=== PATIENT | female | born 2000 | race Caucasian/White ===

== ENCOUNTER 2020-08-11 12:57 | Emergency (ER) | payer OTHER, SELFPAY ==
--- NOTE | ~2020-08-11 | US_ITS ---
EXAMINATION: US OB <=14 wk fetus w TV DATE: 08/11/2020 14:15 INDICATION: Vaginal bleeding during . TECHNIQUE: Real-time pelvic ultrasound utilizing both a transvaginal and transabdominal probe was pe rformed. The interpreting radiologist was not present for the study. COMPARISON: None. FINDINGS: The uterus measures 7.1 x 3.2 x 4.0 cm. The endometrial complex measures 8 mm in thickness which is within normal limits. No intrauterine gestational sac. Is a small amount focus of vascular flow withi n the endometrial complex on color Doppler. The right ovary measures 3.1 x 1.5 x 1.8 cm. The left ova ry measures 2.8 x 1.3 x 1.3 cm. Vascular flow identified within both ovaries on color Doppler. No oth er abnormal masses identified at the adnexal regions. There is no free fluid in the pelvis. IMPRESSION: 1. No intrauterine gestational sac. Differential would include early, failed or ectopic alt ariella there are no other findings to more specifically suggest the latter. Reviewed, dictated and finalized at location A. SUPPORT TECHNICIAN IMPRESSION: 1. No intrauterine gestational sac. Differential would include early, failed or ectopic although there are no other findings to more specifically beavers ggest the latter.
[2020-08-11 13:00] VITALS: BP 121/80; PULSE 102; RESP 16; TEMP 36.4; O2SAT 100
--- NOTE | 2020-08-11 13:19 | ED.PREGNANCY ---
HPI - General Chief complaint: Vaginal Bleeding Stated complaint: preg/vb Time Seen by Provider: 08/11/20 13:11 Source: patient Mode of arrival: ambulatory Limitations: no limitations History of Present Illness HPI Narrative: A 19-year-old female presents to the emergency department with complaints of vaginal bleeding early in . Patient states she thinks she is approximately 6 to 7 weeks along. She notes that starting last night she had a gush of blood with several small dime sized clots. She does endorse some cramping associated with this. Patient denies seeing any tissue. She does note that this is her first . She denies any trauma, injury or sexual activity preceding the bleeding. Related Data Home Medications Medication Instructions Recorded Confirmed No Home Medications 08/11/20 08/11/20 Allergies Allergy/AdvReac Type Severity Reaction Status Date / Time No Known Allergies Allergy Verified 08/11/20 13:03 Review of Systems Review of Systems: Narrative: CONSTITUTIONAL: Denies fever, chills, or sweats. EYES: Denies visual changes, redness, or discharge. ENT: Denies rhinorrhea, congestion, sore throat, or otalgia. CARDIOVASCULAR: Denies chest pain, palpitations, or edema. RESPIRATORY: Denies cough or dyspnea. GASTROINTESTINAL: Denies abdominal pain, nausea, vomiting, or diarrhea. GENITOURINARY: Denies dysuria or hematuria. Endorses vaginal bleeding. SKIN: Denies rash or itching. MUSCULOSKELETAL: Denies back pain, joint pain, or myalgia. NEUROLOGIC: Denies headache, numbness, dizziness, or weakness. PSYCHIATRIC: Denies anxiety or depression. [facility] Social History Social History Gender identity (if verbalized by the patient): Female Exam Narrative: Exam Narrative: GENERAL: Well-appearing, well-nourished, and in no acute distress. HEAD: Normocephalic, atraumatic. EYES: PERRLA and EOMI. ENT: Nares clear, no rhinorrhea or epistaxis. Mucous membranes moist. Oropharynx without tonsillar hypertrophy exudate or other lesions. Bilateral TMs pearly wilkinson nonbulging NECK: Supple. No adenopathy or masses. No carotid bruits or JVD CHEST: Clear to auscultation. No respiratory distress. No wheezes rales or rhonchi HEART: Regular rate and rhythm. No murmur heard. Normal peripheral pulses. ABDOMEN: Soft, nontender, nondistended, normal active bowel sounds. EXTREMITIES: Normal range of motion. No edema. SKIN: Warm, dry, no rash. NEURO: No focal deficits. Alert and oriented x3. PSYCH: Normal mood and affect. Course Reevaluation(s) Reevaluation #1: Updated patient to the findings of the work-up thus far. Given her bleeding, the ultrasound findings and the low hCG I did feel that she likely had a completed miscarriage. Patient was encouraged for pelvic rest and to follow-up with her dry wall installer as soon as possible. Time: 14:43 Vital Signs Vital signs: Vital Signs Temperature 36.4 C 08/11/20 13:00 Pulse Rate 102 H 08/11/20 13:00 Respiratory Rate 16 08/11/20 13:00 Blood Pressure 121/80 08/11/20 13:00 Pulse Oximetry 100 08/11/20 13:00 Temperature 36.4 C 08/11/20 13:00 Pulse Rate 102 H 08/11/20 13:00 Respiratory Rate 16 08/11/20 13:00 Blood Pressure 121/80 08/11/20 13:00 Pulse Oximetry 100 08/11/20 13:00 MDM - OB/Uterine Contractions MDM Narrative Medical decision making narrative: In brief this is a 19-year-old female who came into the emergency department with vaginal bleeding early in . Work-up ensued. Her hCG levels were very very low, ultrasound negative for any signs of . With heavy bleeding at the patient had yesterday she likely miscarried. Informed patient of pelvic rest and to follow-up with her dry wall installer. Medical Records Attestation: I reviewed the patient's medical records. Lab Data Attestation: I reviewed the patient's lab results. Result diagrams: 08/11/20 13
[2020-08-11 13:31] LABS: Basophils Percent Auto 0.4 % (0.2-1.2); Eosinophils Absolute Auto 0.2 K/mm3 (0-0.3); Eosinophils Percent Auto 2.2 % (0-4.4); Hematocrit 38.9 % (37.0-47.0); Hemoglobin 12.8 g/dL (12.0-15.0); Immature Granulocyte Absolute 0.02 K/mm3 (0.00-0.031); Immature Granulocyte Percent A 0.3 % (0-0.5); Lymphocytes Absolute Auto 2.48 K/mm3 (0.9-3.2); Mean Corpuscular HGB Conc 32.9 g/dl (32-36); Mean Corpuscular Hemoglobin 31.1 pg (26-34); Mean Corpuscular Volume 94.4 fl (80-100); Mean Platelet Volume 9.2 fl (7.4-10.4); Monocytes Absolute Auto 0.6 K/mm3 (0.1-0.6); Monocytes Percent Auto 7.7 % (2.6-8.5); Neutrophils Absolute Auto 4.5 K/mm3 (1.3-6.7); Neutrophils Percent Auto 57.4 % (45.5-73.1); Platelet Count Result 341 k/mm3 (150-375); Red Blood Count 4.12 M/mm3 (4.2-5.4); Red Cell Distribution Width 13.1 % (11.5-14.5); White Blood Count 7.8 K/mm3 (4.5-10.0)
[2020-08-11 13:44] LABS: Anion Gap 6 mmol/L (8-16); Blood Urea Nitrogen 9 mg/dL (7-17); Carbon Dioxide 26 mmol/L (22-30); Chloride 105 mmol/L (98-107); Estimated CRCL calculation 132 ml/min; Estimated Glomerular Filt Rate > 60; Glucose 98 mg/dL (65-105); Potassium 3.5 mmol/L (3.4-5.0); Sodium 137 mmol/L (137-145)
[2020-08-11 13:59] LABS: Beta HCG Quantitative 42.76 mIU/ML
[2020-08-11 14:53] VITALS: BP 136/84; PULSE 84; RESP 16; O2SAT 99
== END 2020-08-11 14:53 | disposition home or self-care (01) ==
PROVIDERS: Emergency Medicine; Emergency Provider Emergency Medicine
DX: O03.9 Complete or unspecified spontaneous abortion without complication (principal)
CPT/HCPCS: 36415; 76801; 76817; 80048; 84702; 85025; 85461; 99284

== ENCOUNTER 2020-09-13 18:44 | Emergency (ER) | payer OTHER, SELFPAY ==
--- NOTE | ~2020-09-13 | XR_ITS ---
EXAMINATION: XR foot RT min 3V EXAM DATE: 09/13/2020 19:45 INDICATION: Fell on ice, lateral right foot pain radiating to 4th digit. Initial encounter. TECHNIQUE: Right foot dorsoplantar, lateral and oblique projections obtained and reviewed. There is no prior study for comparison. FINDINGS: Right metatarsal bones unremarkable. There are no acute fractures or dislocations identifi ed. There is no subcutaneous gas. The soft tissue is unremarkable. There are no radiopaque foreig n bodies. IMPRESSION: No acute osseous findings. Reviewed, dictated and finalized at location A. VITY AIDE IMPRESSION: No acute osseous findings.
[2020-09-13 19:19] VITALS: BP 136/61; PULSE 91; RESP 16; TEMP 36.3; O2SAT 100
--- NOTE | 2020-09-13 20:53 | ED.LOWEXIN ---
HPI - Extremity Injury (Lower) General Chief Complaint: Extremity Injury, Lower Stated Complaint: fall, rt foot pain Time Seen by Provider: 09/13/20 19:58 Source: patient Mode of arrival: ambulatory Limitations: no limitations History of Present Illness HPI Narrative: This is a 19 year old female that presents to the ER for right foot pain after an injury last night. Reports she slipped on the ice. Reports pain on the lateral aspect of the foot. Worse with weightbearing and relieved with rest. Denies decreased range of motion or numbness. Related Data Home Medications Medication Instructions Recorded Confirmed naproxen sodium [Aleve] mg 09/13/20 Allergies Allergy/AdvReac Type Severity Reaction Status Date / Time No Known Allergies Allergy Verified 09/13/20 19:26 Review of Systems Review of Systems: Narrative: CONSTITUTIONAL: Denies fever MUSCULOSKELETAL: Reports joint pain, and myalgia. NEUROLOGIC: Denies numbness, or weakness. All systems reviewed & are unremarkable except as noted in HPI and below PMFSH Past Medical History Medical History (Updated 09/13/20 @ 20:59 by Judith Bajwa PA-C) No active medical problems Social History Social History (Updated 09/13/20 @ 20:56 by Judith Bajwa PA-C) Smoking status: Never smoker Gender identity (if verbalized by the patient): Female Exam Narrative: Exam Narrative: GENERAL: Well-appearing, well-nourished, and in no acute distress. HEAD: Normocephalic, atraumatic. EYES: EOMI. EXTREMITIES: Normal range of motion. No edema or obvious deformity. Normal DP pulses. Normal sensation SKIN: Warm, dry, no rash. NEURO: No focal deficits. Alert and oriented x3. PSYCH: Normal mood and affect Course Vital Signs Vital signs: Vital Signs Temperature 97.4 F L 09/13/20 19:19 Pulse Rate 91 09/13/20 19:19 Respiratory Rate 16 09/13/20 19:19 Blood Pressure 136/61 09/13/20 19:19 Pulse Oximetry 100 09/13/20 19:19 Temperature 97.4 F L 09/13/20 19:19 Pulse Rate 91 09/13/20 19:19 Respiratory Rate 16 09/13/20 19:19 Blood Pressure 136/61 09/13/20 19:19 Pulse Oximetry 100 09/13/20 19:19 MDM - Extremity Injury (Lower) MDM Narrative Medical decision making narrative: Patient presents the emergency department for right foot pain after an injury today. Right foot x-ray is without acute osseous abnormalities. Patient was instructed on care of foot sprain. She is to follow-up with primary care doctor. She was given warnings to return the ER Imaging Data Radiologist's impression: ITS Impressions Foot X-Ray 09/13/20 19:49 IMPRESSION: No acute osseous findings. Critical Care Time Critical Care Time Critical Care Time: No Discharge Plan Discharge Clinical Impression: Right foot sprain Qualifiers: Encounter type: initial encounter Qualified Code(s): S93.601A - Unspecified sprain of right foot, initial encounter Patient Disposition: Home, Self-Care Condition: Stable Instructions: Foot Sprain (ED) Additional Instructions: Return to the ER if you experience fever, redness and swelling of your leg, numbness, or any other symptoms that are concerning to you Wear SAJAN wrap and use crutches. No weight on the affected leg until able to bear weight without pain. Ice and elevate extremity. Pain medication as needed and directed. Follow up with primary care doctor for further care. Prescriptions: No Action naproxen sodium [Aleve] 220 mg Tablet RF: 0 Follow-up/Referrals: Trino Sanders MD [Physician] - 1 Week PHYSICIAN,RIVETER HELPER [Primary Care Provider] - Stand Alone Forms: Work/School Release IP
== END 2020-09-13 21:28 | disposition home or self-care (01) ==
PROVIDERS: Emergency Provider Emergency Medicine
DX: S93.601A Unspecified sprain of right foot, initial encounter (principal); W00.0XXA Fall on same level due to ice and snow, initial encounter
CPT/HCPCS: 73630; 99283

== ENCOUNTER 2020-12-11 11:17 | Emergency (ER) | payer OTHER, SELFPAY ==
--- NOTE | ~2020-12-11 | XR_ITS ---
EXAMINATION: XR toe 4th LT min 2V DATE: 12/11/2020 12:07 INDICATION: Left fourth toe injury. TECHNIQUE: 4 views of left fourth toe were obtained. COMPARISON: None. FINDINGS: Bone alignment is normal. No fracture. Joint spaces are well maintained. IMPRESSION: 1. No fracture. Reviewed, dictated and finalized at location A. IMPRESSION: 1. No fracture.
[2020-12-11 11:20] VITALS: BP 144/91; PULSE 95; RESP 18; TEMP 36.4; O2SAT 100
--- NOTE | 2020-12-11 12:33 | ED.GENADULT ---
HPI - General Adult General Chief complaint: Extremity Injury, Lower Stated complaint: L 4 th toe injury Time Seen by Provider: 12/11/20 11:35 Source: patient and RN notes reviewed Mode of arrival: ambulatory Limitations: no limitations History of Present Illness HPI narrative: Patient is a 20-year-old female who presents with left fourth toe pain after striking the toe a day ago while walking notes aching pain worse with activity and movement noted bruising in the toe denies other injuries or complaints presents in no distress Related Data Home Medications Medication Instructions Recorded Confirmed naproxen sodium [Aleve] mg 09/13/20 Allergies Allergy/AdvReac Type Severity Reaction Status Date / Time No Known Allergies Allergy Verified 12/11/20 11:33 Review of Systems Review of Systems: All systems reviewed & are unremarkable except as noted in HPI and below PMFSH Past Medical History Medical History No active medical problems Social History Social History (Updated 09/13/20 @ 20:56 by Judith Bajwa PA-C) Smoking status: Never smoker Gender identity (if verbalized by the patient): Female Exam Narrative: Exam Narrative: GENERAL: Well-appearing, well-nourished, and in no acute distress. HEAD: Normocephalic, atraumatic. EYES: PERRLA and EOMI. ENT: Nares clear, no rhinorrhea or epistaxis. Mucous membranes moist. EXTREMITIES: Normal range of motion. No edema. Fourth toe with bruising and tenderness left foot no other deformities SKIN: Warm, dry, no rash. NEURO: No focal deficits. Alert and oriented x3. Neurovascularly intact. Capillary refill less than 2 seconds PSYCH: Normal mood and affect. Course Course Emergency Course: Patient in the room in no distress aware of case findings treatment plan and diagnosis Vital Signs Vital signs: Vital Signs Temperature 97.5 F L 12/11/20 11:20 Pulse Rate 95 12/11/20 11:20 Respiratory Rate 18 12/11/20 11:20 Blood Pressure 144/91 H 12/11/20 11:20 Pulse Oximetry 100 12/11/20 11:20 Temperature 97.5 F L 12/11/20 11:20 Pulse Rate 95 12/11/20 11:20 Respiratory Rate 18 12/11/20 11:20 Blood Pressure 144/91 H 12/11/20 11:20 Pulse Oximetry 100 12/11/20 11:20 Medical Decision Making MDM Narrative Medical decision making narrative: Patients injury or pain is consistent with musculoskeletal etiology. No signs of neurological or vascular compromise on exam. Compartments and tisues are soft without signs of compartment syndrome. Pain is felt appropriate for further evaluation on an outpatient basis. Vital Signs Vital Signs: Vital Signs Temperature 97.5 F L 12/11/20 11:20 Pulse Rate 95 12/11/20 11:20 Respiratory Rate 18 12/11/20 11:20 Blood Pressure 144/91 H 12/11/20 11:20 Pulse Oximetry 100 12/11/20 11:20 Temperature 97.5 F L 12/11/20 11:20 Pulse Rate 95 12/11/20 11:20 Respiratory Rate 18 12/11/20 11:20 Blood Pressure 144/91 H 12/11/20 11:20 Pulse Oximetry 100 12/11/20 11:20 Imaging Data Radiologist's impression: ITS Impressions Toe X-Ray 12/11/20 12:09 IMPRESSION: 1. No fracture. Discharge Plan Discharge Clinical Impression: Contusion of toe Patient Disposition: Home, Self-Care Condition: Stable Instructions: Antibiotic Form, Foot Contusion (ED) Additional Instructions: Limited weight on the affected leg until able to bear weight without pain. Ice and elevate extremity. Pain medication as needed and directed. Follow up with your doctor for further care in the next 7 days. Prescriptions: No Action naproxen sodium [Aleve] 220 mg Tablet RF: 0 Follow-up/Referrals: PHYSICIAN,RN CARDIOLOGY [Primary Care Provider] - Dung Burkett DO [Physician] - Stand Alone Forms: Work/School Release IP
== END 2020-12-11 12:40 | disposition home or self-care (01) ==
PROVIDERS: Emergency Provider Emergency Medicine
DX: S90.122A Contusion of left lesser toe(s) without damage to nail, initial encounter (principal); X58.XXXA Exposure to other specified factors, initial encounter
CPT/HCPCS: 73660; 99283

== ENCOUNTER 2021-03-29 19:54 | Emergency (ER) | payer OTHER, SELFPAY ==
[2021-03-29 19:58] VITALS: BP 133/69; PULSE 87; RESP 17; TEMP 36.4; O2SAT 100
--- NOTE | 2021-03-29 21:25 | ED.FEMALEGU ---
HPI - Female Genitourinary General Chief complaint: RESEARCH PROGRAM INTERN Stated complaint: knot' on labia Time Seen by Provider: 03/29/21 20:32 Source: patient Mode of arrival: ambulatory Limitations: no limitations History of Present Illness HPI Narrative: This is a 20 year old female who presents for evaluation of right lab knot. Patient noticed a knot to her right labial 2 days ago. She reports it has increased in size and it has become more painful. She is currently on her menstrual cycle. She denies abdominal pain, nausea, vomiting or fever. Related Data Home Medications Medication Instructions Recorded Confirmed naproxen sodium [Aleve] mg 09/13/20 Allergies Allergy/AdvReac Type Severity Reaction Status Date / Time No Known Allergies Allergy Verified 12/11/20 11:33 Review of Systems Review of Systems: All systems reviewed & are unremarkable except as noted in HPI and below PMFSH Past Medical History Medical History (Updated 03/30/21 @ 00:01 by Makayla Grady) No active medical problems Surgical History Surgical History (Updated 03/29/21 @ 21:29 by Liseth Bhakta MD) Hx of tonsillectomy Social History Social History (Updated 09/13/20 @ 20:56 by Judith Bajwa PA-C) Smoking status: Never smoker Gender identity (if verbalized by the patient): Female Exam Const: General: no acute distress and alert Orientation/consciousness: patient oriented x3 Eyes: EOM: EOMs intact bilaterally Resp: Effort & Inspection: normal respiratory effort and no retractions Auscultation: clear to auscultation bilaterally Cardio: Rate: regular rate Rhythm: regular rhythm Heart sounds: no murmurs GI: GI Palp: Yes Soft to palpation, No Tenderness to palpation present (GI) and No Guarding due to palpation present (GI) Auscultation: normal bowel sounds : Other: there is area of tenderness, swelling right labial majora, no erythema or drainage Skin: General skin exam: normal color Rashes: no rashes Neuro: General: patient oriented x3 and moves all extremities Extrem: General: normal to inspection Psych: Mental Status: mental status grossly normal Affect: normal affect Course Reevaluation(s) Reevaluation #1: I discussed with patient diagnosis of bartholin's cyst. She understands she will need to follow up . Date: 09/04/21 Time: 23:19 Vital Signs Vital signs: Vital Signs Temperature 97.5 F L 03/29/21 19:58 Pulse Rate 87 03/29/21 19:58 Respiratory Rate 17 03/29/21 19:58 Blood Pressure 133/69 03/29/21 19:58 Pulse Oximetry 100 03/29/21 19:58 Temperature 98.2 F 03/29/21 23:34 Pulse Rate 98 03/29/21 23:34 Respiratory Rate 18 03/29/21 23:34 Blood Pressure 118/72 03/29/21 23:34 Pulse Oximetry 99 03/29/21 23:34 Procedures Abscess I/D bartholin's gland: Date of Incision: 03/29/21 Time of Incision: 23:19 Side (if applicable): right Local Anesthetic: lidocaine 1% Amount of anesthesia used (mL): 1 Technique: incised with #11 blade Amount of fluid expressed (mL): 2 Irrigation: Yes Packing used?: none I&D Results: Pus and Blood Complications: bleeding Discharge Plan Discharge Clinical Impression: Cyst of right Bartholin's gland Patient Disposition: Home, Self-Care Condition: Stable Instructions: Antibiotic Form, Bartholin Cyst (ED) Additional Instructions: Please read discharge instruction and follow instructions. Follow up with your grocery supervisor. Prescriptions: No Action naproxen sodium [Aleve] 220 mg Tablet RF: 0 Follow-up/Referrals: Larry Prajapati DO [Physician] - PHYSICIAN,RESEARCH PROGRAM MANAGER [Primary Care Provider] -
[2021-03-29 22:01] VITALS: BP 128/76; PULSE 81; RESP 15; O2SAT 99
[2021-03-29 23:34] VITALS: BP 118/72; PULSE 98; RESP 18; TEMP 36.8; O2SAT 99
== END 2021-03-29 23:35 | disposition home or self-care (01) ==
PROVIDERS: Emergency Provider General Practice
DX: N75.0 Cyst of Bartholin's gland (principal)
CPT/HCPCS: 56420; 99282

== ENCOUNTER 2021-12-15 20:27 | Emergency (ER) | payer OTHER, SELFPAY ==
--- NOTE | ~2021-12-15 | XR_ITS ---
EXAM: XR ankle RT min 3V DATE: 12/15/2021 20:52 HISTORY: SLIPPED AND FELL, SWELLING TO LAT SIDE, HX MULTI SPRAINS . COMPARISON: None available. FINDINGS: Normal mineralization. No fracture or dislocation. No lytic or blastic lesion. Joint space s are maintained. No erosion or periosteal change. Lateral soft tissue swelling. IMPRESSION: No acute osseous finding in the right ankle. Reviewed, dictated and finalized at location K.
[2021-12-15 20:34] VITALS: BP 112/73; PULSE 87; RESP 16; TEMP 36.2; O2SAT 100
--- NOTE | 2021-12-15 20:57 | ED.LOWEXIN ---
HPI - Extremity Injury (Lower) General Chief Complaint: Extremity Injury, Lower Stated Complaint: right ankle pain Time Seen by Provider: 12/15/21 20:44 Source: patient Mode of arrival: ambulatory Limitations: no limitations History of Present Illness HPI Narrative: Patient is 21 years old white female drove herself to the emergency room because of pain of the right ankle after twisting while taking a shower. She denies other injuries. Related Data Home Medications Medication Instructions Recorded Confirmed naproxen sodium [Aleve] mg 09/13/20 Allergies Allergy/AdvReac Type Severity Reaction Status Date / Time No Known Allergies Allergy Verified 12/15/21 20:36 Review of Systems Review of Systems: All systems reviewed & are unremarkable except as noted in HPI and below PMFSH Past Medical History Medical History No active medical problems Surgical History Surgical History Hx of tonsillectomy Social History Social History Smoking status: Never smoker Gender identity (if verbalized by the patient): Female Exam Narrative: General appearance: Well-developed, well-nourished Skin: Normal color Vascular: Normal peripheral pulses, normal capillary refill. Musculoskeletal: Normal range of motion, nontender back Neurologic: Alert and oriented ?3, Course Course Emergency Course: Right ankle sprain/strain is my concern Vital Signs Vital signs: Vital Signs Temperature 36.2 C L 12/15/21 20:34 Pulse Rate 87 12/15/21 20:34 Respiratory Rate 16 12/15/21 20:34 Blood Pressure 112/73 12/15/21 20:34 Pulse Oximetry 100 12/15/21 20:34 Temperature 36.2 C L 12/15/21 20:34 Pulse Rate 87 12/15/21 20:34 Respiratory Rate 16 12/15/21 20:34 Blood Pressure 112/73 12/15/21 20:34 Pulse Oximetry 100 12/15/21 20:34 MDM - Extremity Injury (Lower) Imaging Data My impression: No fracture, soft tissue swelling lateral malleolus. Critical Care Time Critical Care Time Critical Care Time: No Discharge Plan Discharge Clinical Impression: Ankle sprain and strain Patient Disposition: Home, Self-Care Condition: Stable Instructions: Antibiotic Form, Ankle Sprain (ED), Ankle Stirrup Splint (ED) Additional Instructions: Return if symptoms are worsening , call your family physician for appointment, take Tylenol as as needed for aches and pain, continue home medications., Ice pack 20 minutes/h for the next 24 hours, keep foot elevated, crutches, do not bear weight on the right foot. Prescriptions: No Action naproxen sodium [Aleve] 220 mg Tablet RF: 0 Follow-up/Referrals: PHYSICIAN,ROUTE AIDE [Primary Care Provider] - Isacc Hannah MD [Physician] - 12/18/21 Stand Alone Forms: Work/School Release IP
[2021-12-15] MEDS: ACETAMINOPHEN 325 MG TABLET 650 MG PO (21:06)
[2021-12-15] MEDS: IBUPROFEN 600 MG TABLET PO (21:06)
== END 2021-12-15 21:27 | disposition home or self-care (01) ==
PROVIDERS: Emergency Provider Emergency Medicine
DX: S93.401A Sprain of unspecified ligament of right ankle, initial encounter (principal); S96.911A Strain of unspecified muscle and tendon at ankle and foot level, right foot, initial encounter; X50.9XXA Other and unspecified overexertion or strenuous movements or postures, initial encounter
CPT/HCPCS: 73610; 99283; A9270

== ENCOUNTER 2022-04-06 07:10 | Emergency (ER) | payer OTHER, SELFPAY ==
--- NOTE | ~2022-04-06 | US_ITS ---
EXAMINATION: US OB <=14 wk fetus w TV DATE: 04/06/2022 09:04 INDICATION: First trimester bleeding. TECHNIQUE: Real-time transabdominal and transvaginal pelvic ultrasound was performed. COMPARISON: None. FINDINGS: TRANSABDOMINAL ULTRASOUND: The uterus measures 7.1 x 5.2 x 6.3 cm. TRANSVAGINAL ULTRASOUND: There is an intrauterine gestational sac. A yolk sac is identified. The fet al crown rump length measures 0.9 cm, which correlates with an estimated gestational age of 7 weeks a nd 0 day(s) (+/-) 4 day(s). heart motion is identified measuring 164 beats per minute (bpm) by M-mode Doppler. The cervical length is normal. The right ovary measures 1.8 x 0.9 x 1.1 cm. The left ovary measures 3.5 x 2.4 x 2.3 cm. There is no free fluid in the pelvis. IMPRESSION: 1. Single living intrauterine gestation with estimated date of delivery of 11/23/2022. Reviewed, dictated and finalized at location A. IMPRESSION: 1. Single living intrauterine gestation with estimated date of delivery of 11/23.
--- NOTE | 2022-04-06 07:15 | ED.GENADULT ---
HPI - General Adult General Chief complaint: Vaginal Bleeding Stated complaint: vag bleeding-8 weeks Time Seen by Provider: 04/06/22 07:14 Source: patient and family Mode of arrival: ambulatory Limitations: no limitations History of Present Illness HPI narrative: The patient is a 21-year-old female G2, P0 currently 8 weeks dated by last menstrual period and recent ultrasound presenting for evaluation of vaginal bleeding. Patient reports that yesterday she began to experience some light vaginal cramping with some associated bleeding this morning. Patient reports that bleeding was initially heavy without any large blood clots. Did not fill more than 1 pad per hour for consecutive hours. Patient states that she has a history of first trimester miscarriage at 12 weeks with previous that was spontaneous. Patient reports recent intercourse 36 hours ago. She denies any bleeding immediately following intercourse. She denies any fever, chills, cough, chest pain or abdominal pain. She denies dysuria or hematuria. Patient is a member of the [employer], currently does not have an BOTTLE CLEANER. Related Data Home Medications Medication Instructions Recorded Confirmed calcium phosphate,dibasic 77 tablet PO 04/06/22 04/06/22 mg-vitamin D3 400 unit tablet [id number] 1 mg tablet PO 04/06/22 tablet Allergies Allergy/AdvReac Type Severity Reaction Status Date / Time No Known Allergies Allergy Verified 04/06/22 07:12 Review of Systems Review of Systems: CONSTITUTIONAL: Denies fever, chills, or sweats. CARDIOVASCULAR: Denies chest pain, palpitations, or edema. RESPIRATORY: Denies cough or dyspnea. GASTROINTESTINAL: Denies abdominal pain, nausea, vomiting, or diarrhea. GENITOURINARY: Denies dysuria or hematuria. Reports vaginal bleeding. Reports mild pelvic cramping. SKIN: Denies rash or itching. MUSCULOSKELETAL: Denies back pain, joint pain, or myalgia. NEUROLOGIC: Denies headache, numbness, or weakness. . [facility] Past Medical History Medical History (Updated 04/06/22 @ 10:13 by Shanita Gutierrez MD) History of miscarriage No active medical problems Surgical History Surgical History Hx of tonsillectomy Social History Social History Smoking status: Never smoker Gender identity (if verbalized by the patient): Female Exam Narrative: GENERAL: Awake, alert, conversant HEAD: Normocephalic, atraumatic. EYES: PERRLA and EOMI. ENT: Nares clear, no rhinorrhea or epistaxis. Mucous membranes moist. NECK: Supple. CHEST: No respiratory distress, breathing even and non labored HEART: Regular rate, sinus rhythm ABDOMEN:Non distended, non tender : Pelvic exam: Labia majora and minora normal without lesions. Vagina with scant blood. No cervical motion tenderness. No adnexal tenderness or fullness bilaterally. Discharge present. EXTREMITIES: Normal range of motion. No edema. SKIN: Warm, dry, no rash. NEURO:No focal deficits. Alert and oriented x3 Course Vital Signs Vital signs: Vital Signs Temperature 36.4 C 04/06/22 07:16 Pulse Rate 91 04/06/22 07:16 Respiratory Rate 15 04/06/22 07:16 Blood Pressure 127/78 04/06/22 07:16 Pulse Oximetry 100 04/06/22 07:16 Oxygen Delivery Room Air 04/06/22 07:16 Temperature 36.4 C 04/06/22 07:16 Pulse Rate 84 04/06/22 09:26 Respiratory Rate 14 04/06/22 09:26 Blood Pressure 132/79 04/06/22 09:26 Pulse Oximetry 100 04/06/22 09:26 Oxygen Delivery Room Air 04/06/22 07:16 Medical Decision Making MDM Narrative Medical decision making narrative: Patient presented for evaluation of vaginal bleeding with recent sexual vaginal intercourse. At the time of assessment, ABCs are intact and vital signs are stable. Pelvic exam is reassuring, no brisk bleeding. No clots present. Cervix is closed. No
[2022-04-06 07:16] VITALS: BP 127/78; PULSE 91; RESP 15; TEMP 36.4; O2SAT 100
[2022-04-06 07:55] LABS: Basophils Percent Auto 0.2 % (0.2-1.2); Eosinophils Percent Auto 0.4 % (0-4.4); Hematocrit 39.4 % (37.0-47.0); Hemoglobin 13.2 g/dL (12.0-15.0); Immature Granulocyte Absolute 0.04 K/mm3 (0.00-0.031); Immature Granulocyte Percent A 0.4 % (0-0.5); Lymphocytes Absolute Auto 1.65 K/mm3 (0.9-3.2); Mean Corpuscular HGB Conc 33.5 g/dl (32-36); Mean Corpuscular Hemoglobin 31.7 pg (26-34); Mean Corpuscular Volume 94.5 fl (80-100); Mean Platelet Volume 9.1 fl (7.4-10.4); Monocytes Absolute Auto 0.5 K/mm3 (0.1-0.6); Monocytes Percent Auto 5.1 % (2.6-8.5); Neutrophils Percent Auto 77.9 % (45.5-73.1); Platelet Count Result 328 k/mm3 (150-375); Red Blood Count 4.17 M/mm3 (4.2-5.4); White Blood Count 10.3 K/mm3 (4.5-10.0)
[2022-04-06 08:06] LABS: INR 1.1; Prothrombin Time 13.6 Seconds (11.1-14.7)
[2022-04-06 08:07] LABS: Partial Thromboplastin Time 31.8 SECONDS (22.3-36.8)
[2022-04-06 08:09] LABS: Alanine Aminotransferase 13 U/L (6-35); Albumin Level 4.4 g/dL (3.5-5.1); Alkaline Phosphatase 66 U/L (38-126); Anion Gap 14 mmol/L (8-16); Aspartate Amino Transferase 21 U/L (14-36); Bilirubin,Total 0.5 mg/dL (0.2-1.3); Blood Urea Nitrogen 8 mg/dL (7-17); Calcium 8.9 mg/dL (8.4-10.2); Carbon Dioxide 21 mmol/L (22-30); Chloride 102 mmol/L (98-107); Estimated CRCL calculation 146 ml/min; Estimated Glomerular Filt Rate > 60; Glucose 106 mg/dL (65-110); Potassium 3.8 mmol/L (3.4-5.0); Sodium 137 mmol/L (137-145)
[2022-04-06 08:11] LABS: Add Urine Microscopic? YES; Appearance Urine Cloudy (Clear); Bacteria Urine Trace /hpf; Bilirubin Urine Negative (Negative); Blood Urine Negative (Negative); Color Urine Yellow (Yellow); Glucose Urine UA Negative (Negative); Ketones Urine Trace mg/dL (Negative); Leukocyte Esterase Ur Negative LEU/UL (Negative); Mucus Urine Rare /lpf; Nitrate Urine Negative (Negative); Protein Urine 1+ mg/dL (Negative); RBC Urine 0-2 /hpf (0-2); Specific Grav Ur 1.027 (1.001-1.035); Squamous Epithelial Cell Urine Occasional /hpf (Few); Urobilinogen Urine Negative mg/dL (<2.0); WBC Urine 0-3 /hpf
[2022-04-06 08:24] VITALS: BP 127/84; PULSE 91; RESP 17; O2SAT 99
--- NOTE | 2022-04-06 08:26 | PC.NURSE ---
Pt to u/s via w/c at this time.
[2022-04-06 09:26] VITALS: BP 132/79; PULSE 84; RESP 14; O2SAT 100
[2022-04-06] MEDS: ACETAMINOPHEN 500 MG TABLET 1000 MG PO (10:23)
== END 2022-04-06 11:02 | disposition home or self-care (01) ==
PROVIDERS: Emergency Provider Emergency Medicine
DX: O46.91 Antepartum hemorrhage, unspecified, first trimester (principal); Z3A.08 8 weeks gestation of pregnancy
CPT/HCPCS: 36415; 76801; 76817; 80053; 81001; 81025; 84702; 85025; 85461; 85610; 85730; 99284; A9270

== ENCOUNTER 2022-06-25 09:59 | Emergency (ER) | payer OTHER, SELFPAY ==
[2022-06-25 10:08] VITALS: BP 118/83; PULSE 141; RESP 18; TEMP 36.2; O2SAT 98
--- NOTE | 2022-06-25 10:28 | ECG_ITS ---
Measurements Intervals [place] Rate: 141 P: 79 OK: 125 QRS: 80 QRSD: 78 T: 7 QT: 290 QTc: 444 Interpretive Statements SINUS TACHYCARDIA, POSSIBLE ATRIAL FLUTTER NONSPECIFIC ST & T-WAVE ABNORMALITY ABNORMAL ECG NO PREVIOUS ECG AVAILABLE FOR COMPARISON Electronically Signed On 06-25-2022 11:29:00 [employer] by Lorenzo Chung M.D.
[2022-06-25 10:50] LABS: Basophils Percent Auto 0.2 % (0.2-1.2); Eosinophils Percent Auto 0.2 % (0-4.4); Hematocrit 39.7 % (37.0-47.0); Hemoglobin 13.6 g/dL (12.0-15.0); Immature Granulocyte Absolute 0.09 K/mm3 (0.00-0.031); Immature Granulocyte Percent A 0.6 % (0-0.5); Lymphocytes Absolute Auto 2.77 K/mm3 (0.9-3.2); Lymphocytes Percent Auto 19.2 % (18.3-44.2); Mean Corpuscular HGB Conc 34.3 g/dl (32-36); Mean Corpuscular Hemoglobin 31.6 pg (26-34); Mean Corpuscular Volume 92.1 fl (80-100); Mean Platelet Volume 10.1 fl (7.4-10.4); Monocytes Absolute Auto 0.9 K/mm3 (0.1-0.6); Monocytes Percent Auto 6.3 % (2.6-8.5); Neutrophils Absolute Auto 10.6 K/mm3 (1.3-6.7); Neutrophils Percent Auto 73.5 % (45.5-73.1); Platelet Count Result 340 k/mm3 (150-375); Red Blood Count 4.31 M/mm3 (4.2-5.4); Red Cell Distribution Width 12.4 % (11.5-14.5); White Blood Count 14.4 K/mm3 (4.5-10.0)
[2022-06-25 11:04] LABS: Alanine Aminotransferase 15 U/L (6-35); Albumin Level 4.4 g/dL (3.5-5.1); Alkaline Phosphatase 84 U/L (38-126); Anion Gap 11 mmol/L (8-16); Aspartate Amino Transferase 18 U/L (14-36); Bilirubin,Total 0.4 mg/dL (0.2-1.3); Blood Urea Nitrogen 10 mg/dL (7-17); Calcium 9.3 mg/dL (8.4-10.2); Carbon Dioxide 22 mmol/L (22-30); Chloride 102 mmol/L (98-107); Estimated CRCL calculation 137 ml/min; Estimated Glomerular Filt Rate > 60; Glucose 122 mg/dL (65-110); Lipase 259 U/L (23-300); Potassium 3.2 mmol/L (3.4-5.0); Sodium 135 mmol/L (137-145)
[2022-06-25] MEDS: SODIUM CHLORIDE 0.9% IV 1,000 ML 999 ML IV CONT ×2 (11:57→13:36)
[2022-06-25] MEDS: ONDANSETRON INJ 4 MG/2 ML VIAL IV PUSH (11:59)
[2022-06-25 12:36] VITALS: BP 139/90; PULSE 105; RESP 20; O2SAT 99
--- NOTE | 2022-06-25 13:31 | ED.NAVMDI ---
HPI - Nausea/Vomiting/Diarrhea General Chief complaint: Nausea/Vomiting/Diarrhea Stated complaint: 19 weeks , nausea and vomiting Time Seen by Provider: 06/25/22 11:48 Related Data Home Medications Medication Instructions Recorded Confirmed calcium phosphate,dibasic 77 tablet PO 04/06/22 04/06/22 mg-vitamin D3 400 unit tablet [id number] 1 mg tablet PO 04/06/22 tablet Allergies Allergy/AdvReac Type Severity Reaction Status Date / Time No Known Allergies Allergy Verified 04/06/22 07:12 [facility] Past Medical History Medical History (Updated 06/25/22 @ 15:22 by Guille Griffin MD) History of miscarriage No active medical problems Surgical History Surgical History Hx of tonsillectomy Social History Social History Smoking status: Never smoker Gender identity (if verbalized by the patient): Female Course Vital Signs Vital signs: Vital Signs Temperature 97.1 F L 06/25/22 10:08 Pulse Rate 141 H 06/25/22 10:08 Respiratory Rate 18 06/25/22 10:08 Blood Pressure 118/83 06/25/22 10:08 Pulse Oximetry 98 06/25/22 10:08 Temperature 97.1 F L 06/25/22 10:08 Pulse Rate 105 H 06/25/22 12:36 Respiratory Rate 20 06/25/22 12:36 Blood Pressure 139/90 06/25/22 12:36 Pulse Oximetry 99 06/25/22 12:36 MDM - Nausea/Vomiting/Diarrhea Lab Data 06/25/22 10:30 06/25/22 10:30 Labs: Lab Results 06/25/22 06/25/22 06/25/22 Range/Units 10:30 10:30 13:58 WBC 14.4 H (4.5-10.0) K/mm3 RBC 4.31 (4.2-5.4) M/mm3 Hgb 13.6 (12.0-15.0) g/dL Hct 39.7 (37.0-47.0) % MCV 92.1 (80-100) fl MCH 31.6 (26-34) pg MCHC 34.3 (32-36) g/dl RDW 12.4 (11.5-14.5) % Plt Count 340 (150-375) k/mm3 MPV 10.1 (7.4-10.4) fl Immature Gran % (Auto) 0.6 H (0-0.5) % Neut % (Auto) 73.5 H (45.5-73.1) % Lymph % (Auto) 19.2 (18.3-44.2) % [place] % (Auto) 6.3 (2.6-8.5) % Eos % (Auto) 0.2 (0-4.4) % Baso % (Auto) 0.2 (0.2-1.2) % Lymph # (Auto) 2.77 (0.9-3.2) K/mm3 [place] # (Auto) 0.9 H (0.1-0.6) K/mm3 Eos # (Auto) 0.0 (0-0.3) K/mm3 Baso # (Auto) 0.0 (0.0-0.1) K/mm3 Abs Immat Gran (auto) 0.09 H (0.00-0.031) K/mm3 Absolute Neuts (auto) 10.6 H (1.3-6.7) K/mm3 Absolute Nucleated RBC 0.0 (0.0-0.012) K/mm3 Nucleated RBC % 0.0 (0.0-0.2) % Sodium 135 L (137-145) mmol/L Potassium 3.2 L (3.4-5.0) mmol/L Chloride 102 (98-107) mmol/L Carbon Dioxide 22 (22-30) mmol/L Anion Gap 11 (8-16) mmol/L BUN 10 (7-17) mg/dL Creatinine 0.60 L (0.7-1.0) mg/dL Estim Creat Clear Calc 137 ml/min Estimated GFR > 60 (59 - ) Glucose 122 H (65-110) mg/dL Calcium 9.3 (8.4-10.2) mg/dL Total Bilirubin 0.4 (0.2-1.3) mg/dL AST 18 (14-36) U/L ALT 15 (6-35) U/L Alkaline Phosphatase 84 (38-126) U/L Total Protein 8.0 (6.3-8.2) g/dL Albumin 4.4 (3.5-5.1) g/dL Lipase 259 (23-300) U/L Urine Color Yellow (Yellow) Urine Appearance Clear (Clear) Urine pH 6.5 (5.0-9.0) Ur Specific [place] 1.025 (1.001-1.035) Urine Protein 2+ H (Negative) mg/dL Urine Glucose (UA) Trace H (Negative) mg/dL Urine Ketones 4+ H (Negative) mg/dL Ur Blood (Man) Negative (Negative) Urine Nitrate Negative (Negative) Urine Bilirubin 2+ H (Negative) Urine Urobilinogen 1.0 (<2.0) mg/dL Leukocyte Esterase Rfl Trace H (Negative) [place]/UL Urine RBC 0-2 (0-2) /hpf Urine WBC 10-15 H /hpf Ur Squamous Epith Cells Few (Few) /hpf Urine Bacteria Trace /hpf Urine Mucus Heavy H /lpf Discharge Plan Discharge Clinical Impression: Nausea and vomiting during Patient Disposition: Home, Self-Care Condition: Stable Instructions: A
[2022-06-25 14:22] LABS: Appearance Urine Clear (Clear); Bilirubin Urine 2+ (Negative); Blood Urine Negative (Negative); Color Urine Yellow (Yellow); Glucose Urine UA Trace mg/dL (Negative); Ketones Urine 4+ mg/dL (Negative); Leukocyte Esterase Ur Trace LEU/UL (Negative); Nitrate Urine Negative (Negative); Protein Urine 2+ mg/dL (Negative); Specific Grav Ur 1.025 (1.001-1.035); pH Urine 6.5 (5.0-9.0)
[2022-06-25 14:24] LABS: Bacteria Urine Trace /hpf; Mucus Urine Heavy /lpf; RBC Urine 0-2 /hpf (0-2); Squamous Epithelial Cell Urine Few /hpf (Few)
[2022-06-25 14:29] LABS: Add Urine Microscopic? YES
== END 2022-06-25 16:02 | disposition home or self-care (01) ==
PROVIDERS: Emergency Provider Emergency Medicine
DX: O21.9 Vomiting of pregnancy, unspecified (principal); Z3A.19 19 weeks gestation of pregnancy; R82.998 Other abnormal findings in urine
CPT/HCPCS: 36415; 80053; 81001; 83690; 85025; 87086; 93005; 96361; 96374; 99284; J2405; J7030